=== PATIENT | male | born 1935 | race Caucasian/White ===

== ENCOUNTER 2020-05-08 19:24 | Emergency (ER) | payer OTHER ==
[~2020-05-08] VITALS: Ht 182.9 cm; Wt 99.8 kg
[2020-05-08] MEDS ORDERED: AZO STANDARD95 MG PO (19:56)
[2020-05-08] MEDS ORDERED: HYDROCODON-ACE1 EAC7 PO (19:56)
[2020-05-08] MEDS ORDERED: FLOMAX0.4 MG PO (19:56)
[2020-05-08] MEDS ORDERED: KEFLEX500 M1 PO (19:57)
[2020-05-08 20:05] LABS: ABSOLUTE EOSINOPHILS 0.1 thou/uL (0.0-0.7); ABSOLUTE LYMPHOCYTES 0.8 thou/uL (0.8-5.3); ABSOLUTE MONOCYTES 0.7 thou/uL (0.0-1.2); ABSOLUTE NEUTROPHILS 8.1 thou/uL (1.6-8.1); BASOPHILS 0.3 %; EOSINOPHILS 0.6 %; HEMATOCRIT 43.7 % (42.0-52.0); HEMOGLOBIN 14.7 gm/dL (14.0-18.0); LYMPHOCYTES 8.7 %; MCH 29.1 pg (26.0-34.0); MCHC 33.7 g/dL (28.0-37.0); MCV 86.4 fL (80.0-100.0); MONOCYTES 7.3 %; MPV 8.8 fl. (7.2-11.1); NUCLEATED RBCS 0 /100WBC; PLATELET COUNT* 200 thou/uL (150-400); POLYS 83.1 %; RBC 5.06 mil/uL (4.50-6.00); RDW-CV 14.2 % (10.5-14.5); WBC 9.7 thou/uL (4.0-11.0)
[2020-05-08 20:10] LABS: CREATININE 2.2 mg/dL (0.6-1.3)
[2020-05-08 20:11] LABS: URINE CLARITY CLOUDY; URINE COLOR RED
[2020-05-08 20:12] LABS: URINE BILIRUBIN NEGATIVE (Negative); URINE BLOOD NEGATIVE (Negative)
[2020-05-08 20:14] LABS: TOTAL BILIRUBIN 0.8 mg/dL (<0.1-1.0); TOTAL PROTEIN 7.1 g/dL (6.4-8.2)
[2020-05-08 20:15] LABS: SQUAMOUS >10 Many /LPF (0-3); URINE RBC >20 Many /HPF (0-2)
[2020-05-08 20:16] LABS: URINE WBC-REFLEX 6-15 Few /HPF (0-5)
[2020-05-08 20:17] LABS: CRYSTALS None Seen /LPF (None Seen); MUCUS None Seen strn/LPF (None Seen)
[2020-05-08 20:19] LABS: BACTERIA-REFLEX None Seen /HPF (None Seen); HYALINE CASTS 0-3 Few /LPF (None Seen)
[2020-05-08 23:58] VITALS: BP 97/53
[2020-05-09] MEDS ORDERED: ULTRA-LIGHT RO1 EACH ×2 (00:08)
== END 2020-05-08 23:59 | disposition home or self-care (01) ==
LOC: M.ERS 19:24
PROVIDERS: Emergency Medicine
DX: T83.098A Other mechanical complication of other urinary catheter, initial encounter (principal); F17.210 Nicotine dependence, cigarettes, uncomplicated; Z88.0 Allergy status to penicillin; Z88.8 Allergy status to other drugs, medicaments and biological substances; Y84.8 Other medical procedures as the cause of abnormal reaction of the patient, or of later complication, without mention of misadventure at the time of the procedure; Y92.89 Other specified places as the place of occurrence of the external cause

== ENCOUNTER 2020-05-31 07:23 | Emergency (ER) | payer OTHER ==
[~2020-05-31] VITALS: Ht 190.5 cm; Wt 86.2 kg
[~2020-05-31 07:23] MED LIST: AZO STANDARD95 MG PO; FLOMAX0.4 MG PO; HYDROCODON-ACE1 EAC7 PO; KEFLEX500 M1 PO; ULTRA-LIGHT RO1 EACH
[2020-05-31] MEDS ORDERED: DIGOX125 MCG PO (07:44)
[2020-05-31] MEDS ORDERED: CARVEDILOL12.5 MG PO (07:44)
[2020-05-31 08:35] VITALS: BP 123/63
== END 2020-05-31 08:35 | disposition home or self-care (01) ==
LOC: M.ERS 07:23
DX: R33.9 Retention of urine, unspecified (principal); F17.210 Nicotine dependence, cigarettes, uncomplicated; Z98.61 Coronary angioplasty status; Z79.899 Other long term (current) drug therapy; Z88.0 Allergy status to penicillin; Z91.048 Other nonmedicinal substance allergy status

== ENCOUNTER 2020-09-27 18:32 | Inpatient (IN) | payer OTHER ==
[~2020-09-27] VITALS: Ht 182.9 cm; Wt 90.0 kg
[~2020-09-27 18:32] MED LIST changes: +CARVEDILOL12.5 MG PO; +DIGOX125 MCG PO
[2020-09-27 18:41] VITALS: BP 127/87
[2020-09-27 19:11] LABS: ABSOLUTE BASOPHILS 0.1 thou/uL (0.0-0.2); ABSOLUTE EOSINOPHILS 0.1 thou/uL (0.0-0.7); ABSOLUTE LYMPHOCYTES 1.5 thou/uL (0.8-5.3); ABSOLUTE MONOCYTES 0.5 thou/uL (0.0-1.2); ABSOLUTE NEUTROPHILS 5.1 thou/uL (1.6-8.1); BASOPHILS 0.7 %; EOSINOPHILS 1.4 %; HEMATOCRIT 44.6 % (42.0-52.0); HEMOGLOBIN 14.9 gm/dL (14.0-18.0); LYMPHOCYTES 20.3 %; MCH 29.1 pg (26.0-34.0); MCHC 33.3 g/dL (28.0-37.0); MCV 87.4 fL (80.0-100.0); MONOCYTES 7.4 %; MPV 8.8 fl. (7.2-11.1); NUCLEATED RBCS 0 /100WBC; PLATELET COUNT* 228 thou/uL (150-400); POLYS 70.2 %; RDW-CV 15.3 % (10.5-14.5); WBC 7.2 thou/uL (4.0-11.0)
[2020-09-27 19:20] LABS: CREATININE 1.2 mg/dL (0.6-1.3)
[2020-09-27 19:31] LABS: ALBUMIN 3.8 g/dL (3.4-5.0); TOTAL BILIRUBIN 0.9 mg/dL (<0.1-1.0); TOTAL PROTEIN 8.3 g/dL (6.4-8.2)
[2020-09-27 20:16] LABS: URINE BILIRUBIN NEGATIVE (Negative); URINE BLOOD NEGATIVE (Negative); URINE CLARITY CLEAR; URINE COLOR YELLOW; URINE GLUCOSE-RANDOM NEGATIVE (Negative); URINE KETONES NEGATIVE (Negative); URINE NITRITE-REFLEX NEGATIVE (Negative); URINE PROTEIN NEGATIVE (Negative)
[2020-09-27 20:21] LABS: URINE LEUKOCYTES-REFLEX 2+ (Negative)
[2020-09-27 20:23] LABS: BACTERIA-REFLEX 1-9 Few /HPF (None Seen); CASTS None Seen /LPF (None Seen); CRYSTALS None Seen /LPF (None Seen); SQUAMOUS 0-3 Few /LPF (0-3); URINE RBC 0-2 Rare /HPF (0-2); URINE WBC-REFLEX 6-15 Few /HPF (0-5)
[2020-09-27 22:30] VITALS: BP 125/72
[2020-09-27 23:58] VITALS: BP 121/69
[2020-09-28 04:00] VITALS: BP 121/72
[2020-09-28 08:00] VITALS: BP 118/76
--- NOTE | 2020-09-28 11:49 | EKG ---
[place] [address] ELECTROCARDIOGRAM REPORT Name: MADDISON MILIANELL Torres Room: [address] IN ..#: [id number] Admission: 09/27/20 Attend Phys: Jacob Alexander, Discharge: Date of : 35 Date of Service: 09/27/20 1849 Report #: [id number] THIS REPORT FOR: //name// [facility] ED Test Date: 2020-09-27 Test Time: 18:49:46 Pat Name: ROOSEVELT MILIAN Department: Room: [facility] Gender: M [employer] Superintendent: NANCI : 1935 Requested By: Дмитрий Kee Order Number: [id number] MD: Doug Mcdonnell Measurements Intervals [place] Rate: 96 P: -60 ID: [id number] QRS: 267 QRSD: 150 T: 67 QT: 421 QTc: 533 Interpretive Statements Sinus or ectopic atrial rhythm Premature ventricular complexes Nonspecific IVCD with LAD No previous ECG available for comparison Electronically Signed On 09-28-2020 11:49:49 CDT by Doug Mcdonnell [email or web address] <ELECTRONICALLY SIGNED> By: Doug Mcdonnell MD, FAC 09/28/20 1149 1849 1849 Doug Mcdonnell MD, [facility] /EPI
[2020-09-28 12:00] VITALS: BP 107/65
--- NOTE | 2020-09-28 14:30 | 2DMMODE ---
[place] [address] 2 D/M-MODE ECHOCARDIOGRAM Name: ROOSEVELT MILIAN Torres Room: [address] IN [facility]#: [id number] Admission: 09/27/20 Attend Phys: Jacob Alexander, Discharge: Date of : 35 Date of Service: 09/28/20 1430 Report #: [id number] THIS REPORT FOR: cc: [facility] - Clinic physician unknown [facility] - Clinic physician unknown Doug Mcdonnell MD [facility] ~ APPROVED REPORT Study performed: 09/28/2020 10:38:40 EXAM: Comprehensive 2D, Doppler, and color-flow Echocardiogram Patient Location: In-Patient Room #: [facility] Status: routine BSA: 2.19 HR: 77 bpm BP: 121/72 mmHg Rhythm: NSR Other Information Study Quality: Good Indications Congestive Heart Failure Dyspnea 2D Dimensions IVSd: 14.43 (7-11mm) LVOT Diam: 23.26 (18-24mm) LVDd: 40.16 mm PWd: 10.62 (7-11mm) Ascending Ao: 34.27 (22-36mm) LVDs: 52.20 (25-40mm) Aortic Root: 35.20 mm Volumes Left Atrial Volume (Systole) LA ESV Index: 46.10 mL/m2 Aortic Valve AoV Peak Dandy.: 0.98 m/s AO Peak Gr.: 3.86 mmHg LVOT Max P.80 mmHg AO Mean Gr.: 2.25 mmHg LVOT Mean P.42 mmHg LVOT Max V: 0.84 m/s AO V2 VTI: 16.50 cm LVOT Mean V: 0.55 m/s KEYONA (VTI): 4.09 cm2 LVOT V1 VTI: 15.88 [place] [address] 2 D/M-MODE ECHOCARDIOGRAM Name: ROOSEVELT MILIAN Room: [address]#: [id number] Admission: 09/27/20 Attend Phys: Jacob Alexander, Discharge: Date of : 35 Date of Service: 09/28/20 1430 Report #: [id number] Mitral Valve E/A Ratio: 1.84 MV Decel. Time: 129.19 ms MV E Max Dandy.: 1.09 m/s MV PHT: 37.47 ms MVA (PHT): 5.87 cm2 TDI E/Medial E': 12.11 Medial E' Dandy.: 0.09 m/s Pulmonary Valve PV Peak Dandy.: 0.70 m/s PV Peak Gr.: 1.98 mmHg Tricuspid Valve RAP Estimate: 5.00 mmHg TR Peak Gr.: 42.92 mmHg RVSP: 47.00 mmHg PA Pressure: 47.00 mmHg Left Ventricle The left ventricle is normal size. There is basal to mid inferior wall akinesis. Mild septal hypertrophy is present. Left ventricular ejection fraction is moderately decreased. LVEF is 35-40%. Grade IV - fixed restrictive diastolic dysfunction. Right Ventricle Right ventricle is mildly dilated. The right ventricular systolic function is normal. Atria Left atrium is moderately dilated. Right atrium is mildly dilated. Aortic Valve The Aortic valve is sclerotic. Trace aortic regurgitation. There is no aortic valvular stenosis. Mitral Valve The mitral valve is normal in structure. Mild mitral regurgitation. No evidence of mitral valve stenosis. Tricuspid Valve The tricuspid valve is normal in structure. Trace tricuspid regurgitation. [place] [address] 2 D/M-MODE ECHOCARDIOGRAM Name: MAICOLROOSEVELT Macdonald Room: [address]#: [id number] Admission: 09/27/20 Attend Phys: Jacob Alexander, Discharge: Date of : 35 Date of Service: 09/28/20 1430 Report #: [id number] Pulmonic Valve The pulmonary valve is normal in structure. There is no pulmonic valvular regurgitation. Great Vessels The aortic root is normal in size. IVC is normal in size and collapses >50% with inspiration. Pericardium There is no pericardial effusion. <Conclusion> The left ventricle is normal size. Mild septal hypertrophy is present. Left ventricular ejection fraction is moderately decreased. LVEF is 35-40%. Grade IV - fixed restrictive diastolic dysfunction. There is basal to mid inferior wall akinesis. Right ventricle is mildly dilated. Left atrium is moderately dilated. Right atrium is mildly dilated. The Aortic valve is sclerotic. Trace aortic regurgitation. Mild mitral regurgitation. Trace tricuspid regurgitation. Moderate pulmonary hypertension. <ELECTRONICALLY SIGNED> By: Doug Mcdonnell MD, FACC 09/28/20 1430 1430 1430 Doug Mcdonnell MD, FACC /INF
[2020-09-28 16:00] VITALS: BP 113/73
[2020-09-28 20:00] VITALS: BP 115/73
[2020-09-29] VITALS: BP 102/64
[2020-09-29 03:40] VITALS: BP 116/66
[2020-09-29 05:28] LABS: HEMATOCRIT 39.6 % (42.0-52.0); HEMOGLOBIN 13.4 gm/dL (14.0-18.0); MCH 29.4 pg (26.0-34.0); MCHC 33.9 g/dL (28.0-37.0); MCV 86.7 fL (80.0-100.0); MPV 8.9 fl. (7.2-11.1); RBC 4.56 mil/uL (4.50-6.00)
[2020-09-29 05:43] LABS: ANION GAP 6 mmol/L (7-16); BUN 30 mg/dL (7-18); CALCIUM 8.5 mg/dL (8.5-10.1); CHLORIDE 104 mmol/L (98-107); CHOLESTEROL 164 mg/dL (<200); CO2 30 mmol/L (21-32); CREATININE 1.4 mg/dL (0.6-1.3); GLUCOSE 125 mg/dL (70-99); HDL CHOLESTEROL 34 mg/dL (>40); LDL CHOLESTEROL 117 mg/dL (<100); POTASSIUM 4.3 mmol/L (3.5-5.1); SODIUM 140 mmol/L (136-145); TC:HDL 4.8 Ratio (Not establshd); TRIGLYCERIDE 67 mg/dL (<150); VLDL 13 mg/dL (<40)
[2020-09-29 05:44] LABS: SERUM ASSESSMENT CLEAR
--- NOTE | 2020-09-29 10:17 | NUR ---
CM ASSESSMENT: CM SPOKE TO THE PT AND HIS DTR MELO AT THE BEDSIDE. PT RESTING WITH HIS EYES CLOSED, AND PT'S DTR ANSWERING ALL CM ASSESSMENT QUESTIONS. PT'S DTR INFORMS THAT THE PT RESIDES AT HOME ALONE, AND HIS DTR LIVES DOWN THE STREET. PT'S DTR CHECKS-IN ON HIM DAILY, BRINGS HIM PREPARED MEALS, AND PROVIDED TRANSPORTATION TO [facility] AND APPOINTMENTS. PT IS INDEPENDENT WITH ADL'S, AND DRIVES IN TOWN OCCATIONALLY. PT USES 0 DME AT HOME CURRENTLY, BUT OWNS A WALKER, BEDSIDE COMMODE, AND WHEELCHAIR. PT HAS 0 HX OF HH OR SNF. PT'S PCP IS DR CELIS IN [place]. PT WOULD BENEFIT FROM HH AT D/C, AND PT'S DTR INFORMS THAT SHE BELIEVES THAT THE PT WILL AGREE TO HH WELL. CM WILL ASSIST WITH ARRANGING HH PRIOR TO PT'S D/C. CM WILL REMAIN AVAILABLE TO ASSIST AND FOLLOW NEEDED.
[2020-09-29 12:00] VITALS: BP 99/58
--- NOTE | 2020-09-29 12:33 | CON ---
[address] [address] CONSULTATION Name: ROOSEVELT MILIAN Room: [address] IN M.R.#: [id number] Admission: 09/27/20 Attend Phys: Jacob Alexander MD Discharge: Date of : 35 Report #: [id number] THIS REPORT FOR: cc: [facility] - Clinic physician unknown [facility] - Clinic physician unknown Doug Mcdonnell MD [facility] ~ DOC #: [id number] cc: MD Doug Eduardo MD CARDIOLOGY CONSULT INDICATION: Heart failure. HISTORY OF PRESENT ILLNESS: The patient is a very pleasant 85-year-old gentleman with an ischemic cardiomyopathy. He reports bypass surgery in 1994. By echocardiogram today, ejection fraction is estimated to be 30-35%. There are wall motion abnormalities to suggest prior inferior wall infarct. The patient has been having increasing shortness of breath and lower extremity swelling for several days at least. The patient and his family report that he has not been taking his medications recently. He presented to the hospital with significant shortness of breath, dyspnea, orthopnea and paroxysmal nocturnal dyspnea. He appears to be having some confusion at this time. He is alert and in no distress. He has been diuresed somewhat and is no longer having significant shortness of breath. He denies chest pain throughout this. His troponin is unremarkable. A 12-lead EKG shows what appears to be either a sinus or ectopic atrial rhythm with intraventricular conduction delay. I did not appreciate any acute ST or T-wave abnormalities. PAST MEDICAL HISTORY: 1. Coronary artery disease. 2. Coronary artery bypass grafting remotely. 3. Benign prostatic hypertrophy. 4. Hypertension. 5. Probable dyslipidemia. 6. Gout. SOCIAL HISTORY: The patient has family that cares for him. There is no tobacco or alcohol use at present. FAMILY HISTORY: Noncontributory. REVIEW OF SYSTEMS: [place] [address] CONSULTATION Name: ROOSEVELT MILIAN Room: [address]#: [id number] Admission: 09/27/20 Attend Phys: Jacob Alexander MD Discharge: Date of : 35 Report #: [id number] PHYSICAL EXAMINATION: VITAL SIGNS: Blood pressure 107/65, pulse 72. GENERAL: This is a pleasant elderly male who is in no distress. Mood and affect appropriate. HEENT: The patient is wearing glasses. Extraocular muscles intact. Mucous membranes are moist. NECK: Shows no jugular venous distention. CHEST: Reveals diminished breath sounds with slight crackles. CARDIAC: Reveals a regular rhythm without gallop or murmur. ABDOMEN: Reveals normal bowel sounds. The abdomen is soft and nontender.. EXTREMITIES: Shows 3+ pitting edema to the knees bilaterally. SKIN: Dry. DIAGNOSTIC DATA: A 12-lead EKG shows a sinus or ectopic atrial rhythm with PVCs without acute ST abnormality. There is an intraventricular conduction delay. Chest x-ray shows cardiomegaly with probable mild bilateral pleural effusions and pulmonary vascular congestion. LABORATORY DATA: Reviewed. NT-proBNP is elevated consistent with acute heart failure. Troponins are unremarkable. IMPRESSION AND RECOMMENDATIONS: 1. Acute on chronic systolic heart failure. The patient is improving symptomatically with IV Lasix. I would continue this and convert to p.o. after another day or so. 2. Ischemic cardiomyopathy. Agree with resuming heart failure medications at this time. This should include carvedilol and LAINEY inhibitor or ARB. We will adjust as the patient tolerates. 3. Hypertension. Blood pressure presently controlled. 4. Probable dyslipidemia. A fasting lipid profile will be ordered. We will probably recommend statin agent pending those results. MD RASTA Narvaez/VALENTE/MARLON <ELECTRONICALLY SIGNED> By: Doug Mcdonnell MD, FACC 09/29/20 1233 1403 40Micdedra Mcdonnell MD, [facility] /nt
[2020-09-29 16:00] VITALS: BP 97/54
[2020-09-29 20:00] VITALS: BP 109/65
[2020-09-30] VITALS (8 sets, daily range): BP systolic 79–102; BP diastolic 43–67
[2020-09-30 06:16] LABS: HEMATOCRIT 38.4 % (42.0-52.0); HEMOGLOBIN 12.9 gm/dL (14.0-18.0); MCH 29.5 pg (26.0-34.0); MCHC 33.5 g/dL (28.0-37.0); MCV 87.9 fL (80.0-100.0); MPV 9.1 fl. (7.2-11.1); RBC 4.37 mil/uL (4.50-6.00); WBC 6.4 thou/uL (4.0-11.0)
[2020-09-30 06:30] LABS: CALCIUM 8.6 mg/dL (8.5-10.1); CREATININE 1.4 mg/dL (0.6-1.3); POTASSIUM 4.7 mmol/L (3.5-5.1)
--- NOTE | 2020-09-30 18:58 | NUR ---
PT A&OX4 PLEASANT AND COOPERATIVE, DAUGHTER AT BEDSIDE MOST OF THE SHIFT. PT ON 3L NC TOLERATING WELL. NO C/O PAIN OR DISCOMFORT.
[2020-10-01] VITALS (7 sets, daily range): BP systolic 92–107; BP diastolic 51–66
--- NOTE | 2020-10-01 06:38 | NUR ---
ASSESSMENT: PT REMAIN ALERT AND ORIENT TIMES FOUR. UP WITH SBA TO BR. PT'S SON STAYED THE NIGHT. SR BBB AND 1ST DEGREE PER MONITOR. BP SOFT. POSSIBLE DC TO HOME TODAY. WILL CONTINUE TO MONITOR.
[2020-10-01] MEDS ORDERED: BAYER CHEWABLE81 MG PO (09:05)
[2020-10-01] MEDS ORDERED: COZAAR 25 MG TA25 M1 PO (09:05)
[2020-10-01] MEDS ORDERED: LASIX 40 MG TAB40 MG PO (09:05)
--- NOTE | 2020-10-01 13:35 | NUR ---
PT A&OX4, PLEASANT AND COOPERATIVE WITH FAMILY AT BEDSIDE. PT IS DISCHARGING TODAY WITH HOME HEALTH, WILL BE ACCOMPANIED BY [employer] WITH ALL OF HIS BELONGINGS VIA FAMILY CAR WITH COPIES OF DISCHARGE INSTRUCTIONS AND EDUCATION.
[2020-10-02] VITALS: BP 112/68
[2020-10-02 04:00] VITALS: BP 112/71
[2020-10-02 09:00] VITALS: BP 97/53
--- NOTE | 2020-10-02 10:32 | NUR ---
Nutrition: Pt admitted with SOA. Consult for poor intake. Pt was eating pudding during visit. He stated he is eating about 1.3 of his meals d/t "it's bland and tasteless." He is drinking all his liquids. He said he eats just fine at home b/c it tastes better. I weighed him in the bed, 207#. He said that's about his usual wt. Heart Healthy diet ordered. H/o HTN, BPH, gout. We went over menu and he selected extra items for dinner - I will order this for him. Albumin 3.8. Low risk.
[2020-10-02 12:00] VITALS: BP 94/53
[2020-10-02 13:40] VITALS: BP 92/51
--- NOTE | 2020-10-02 14:14 | NUR ---
PT DISCHARGED HOME WITH HOME HEALTH
--- NOTE | 2020-10-02 16:51 | NUR ---
PHYSICIAN INFORMS OF PLAN FOR THE PT TO D/C HOME TODAY WITH HH. R.T REST AND EXERCISE COMPLETED AND PT DOES NOT NEED HOME OXYGEN. HH ARRANGED WITH [employer] [facility], AND THEY WILL CONTACT THE PT TO ARRANGE A TIME TO VISIT. CM ALSO PROVIDED PT'S DTR WITH CONTACT INFO FOR [facility] TO ASSIST WITH ARRANGING PCP VISIT WITH [facility] TO GAIN ACCESS TO THE [facility]'S IN-HOME CARE ASSISTANCE PROGRAM. CM WILL REMAIN AVAILABLE TO ASSIST AND FOLLOW NEEDED. VERENICE HIDALGO PHONE:[phone] FAX: [phone]
== END 2020-10-02 14:15 | disposition home health service (06) | DRG 689 ==
LOC: M.ERS 18:32 → M.2W 20:06 → M.TBA-ER 20:06 → M.2W 22:42
PROVIDERS: Family Medicine; Personal Emergency Response Attendant; ADMIT Internal Medicine; ATTEND Internal Medicine
DX: N39.0 Urinary tract infection, site not specified (principal); I50.43 Acute on chronic combined systolic (congestive) and diastolic (congestive) heart failure; J91.8 Pleural effusion in other conditions classified elsewhere; I11.0 Hypertensive heart disease with heart failure; I25.5 Ischemic cardiomyopathy; M10.9 Gout, unspecified; R33.9 Retention of urine, unspecified; N40.0 Benign prostatic hyperplasia without lower urinary tract symptoms; I25.10 Atherosclerotic heart disease of native coronary artery without angina pectoris; E78.5 Hyperlipidemia, unspecified; Z20.822 Contact with and (suspected) exposure to COVID-19; Z95.1 Presence of aortocoronary bypass graft; Z79.899 Other long term (current) drug therapy; Z88.0 Allergy status to penicillin; Z91.14 Patient's other noncompliance with medication regimen